=== PATIENT | female | born 1985 | race Caucasian/White ===

== ENCOUNTER 2018-07-28 12:59 | Emergency (ER) | payer OTHER ==
[~2018-07-28] VITALS: Wt 50.0 kg
[2018-07-28 13:02] VITALS: BP 127/74; PULSE 84; RESP 18
[2018-07-28] MEDS ORDERED: FAMOTIDINE 20 MG TAB PO STA (14:00)
[2018-07-28] MEDS ORDERED: LIDOCAINE/MYLANTA 40 ML BTL PO STA (14:00)
--- NOTE | 2018-07-28 14:17 | ERD ---
ER Documentation Chief Complaint Chief Complaint UPPER ABD PAIN FOR THE PAST FEW WKS. NO NAUSEA OR VOMITING. HPI This is a 32-year-old female with a nonsignificant past medical history presents ED with epigastric abdominal pain has been off and on for the past 4 days. Patient states that the pain radiates to the right mid back. patient admits to having one episode of diarrhea. Denies fever, chills, nausea, vomiting, hematemesis, constipation, dysuria, hematuria, melena, hematochezia, cough, congestion, shortness breath, trouble breathing, and all other symptoms. ROS All systems reviewed and are negative except as per history of present illness. Allergies Allergies: Coded Allergies: No Known Allergy (Unverified , 07/28/18) FmHx Family History: No diabetes Physical Exam Vitals Vital Signs Date Temp Pulse Resp B/P (MAP) Pulse Ox O2 O2 Flow FiO2 Time Delivery Rate 07/28/18 98.8 84 18 127/74 98 13:02 (91) Physical Exam Physical Exam Vitals signs: Reviewed by me. General: Well developed, well nourished, in no acute distress. Patient is awake and alert. Head: Normocephalic, atraumatic. Eyes: Normal conjunctiva, Pupils PERRLA, EOM intact grossly ENT: Pharynx is clear, Moist mucous membranes, external ears, nose and mouth normal Neck: Supple, no masses, lymphadenopathy or JVD Respiratory: Clear to auscultation bilaterally with no wheezing, rhonchi, rales, no distress Cardiovascular: RRR, no murmurs, rubs, or gallops Abdominal: Soft, nondistended, no peritoneal signs, no rigidity, no surgical abdomen, bowel sounds present all 4 quadrants, nontender palpation all 4 quadrants, McBurney's point nontender, no rebound tenderness, no epigastric tenderness, Alston sign negative, MSK: No edema, no unilateral swelling, 5/5 strength Back: No midline tenderness. No flank tenderness Neurologic: Alert and oriented, moving all extremities, normal speech, no focal weakness, no cerebellar signs. Normal mentation Skin: warm and dry, No rash Psych: Normal mood Result Diagram: 07/28/18 1436 07/28/18 1436 Results 24 hrs Laboratory Tests Test 07/28/18 14:25 07/28/18 14:36 POC Beta HCG, Qualitative NEGATIVE White Blood Count 9.1 10^3/ul Red Blood Count 4.21 10^6/ul Hemoglobin 13.0 g/dl Hematocrit 39.4 % Mean Corpuscular Volume 93.6 fl Mean Corpuscular Hemoglobin 30.9 pg Mean Corpuscular Hemoglobin Concent 33.0 g/dl Red Cell Distribution Width 12.4 % Platelet Count 227 10^3/UL Mean Platelet Volume 11.3 fl Immature Granulocytes % 0.300 % Neutrophils % 84.5 % Lymphocytes % 10.5 % Monocytes % 4.2 % Eosinophils % 0.3 % Basophils % 0.2 % Nucleated Red Blood Cells % 0.0 /100WBC Immature Granulocytes # 0.030 10^3/ul Neutrophils # 7.7 10^3/ul Lymphocytes # 1.0 10^3/ul Monocytes # 0.4 10^3/ul Eosinophils # 0.0 10^3/ul Basophils # 0.0 10^3/ul Nucleated Red Blood Cells # 0.0 10^3/ul Urine Color YELLOW Urine Clarity CLEAR Urine pH 7.0 Urine Specific [place] 1.008 Urine Ketones NEGATIVE mg/dL Urine Nitrite NEGATIVE mg/dL Urine Bilirubin NEGATIVE mg/dL Urine Urobilinogen NEGATIVE mg/dL Urine Leukocyte Esterase NEGATIVE Le/ul Urine Hemoglobin NEGATIVE mg/dL Urine Glucose NEGATIVE mg/dL Urine Total Protein NEGATIVE mg/dl Sodium Level 139 mmol/L Potassium Level 4.3 mmol/L Chloride Level 104 mmol/L Carbon Dioxide Level 28 mmol/L Anion Gap 7 Blood Urea Nitrogen 11 mg/dl Creatinine 0.51 mg/dl Est Glomerular Filtrat Rate mL/min > 60 mL/min Glucose Level 136 mg/dl Calcium Level 9.6 mg/dl Total Bilirubin 0.4 mg/dl Direct Bilirubin 0.00 mg/dl Indirect Bilirubin 0.4 mg/dl Aspartate Amino Transf (AST/SGOT) 106 IU/L Alanine Aminotransferase (ALT/SGPT) 84 IU/L Alkaline Phosphatase 128 IU/L Total Protein 7.4 g/dl Albumin 4.3 g/dl Globulin 3.10 g/dl Albumin/Globulin Ratio 1.38 Lipase 104 U/L Current Medications Medications Dose Sig/Brandon Start Time Status Last (Trade) Ordered Route PRN Stop Time Admin Dose Reason Admin Famotidine 20 mg ONCE STAT 07/28/18 DC 07/28/18 (Pepcid) PO 14:00 14:28 07/28/18 14:02 40 ml ONCE STAT 07/28/18 DC 07/28/18 Miscellaneous PO 14:00 14:28 Medication 07/28/18 14:02 (Gi Cocktail (2)) Procedures/MDM EKG, MONITORS, & DIAGNOSTIC IMAGING: [place] [address] Radiology Main Line: [phone] DIAGNOSTIC IMAGING REPORT Patient: MATTY BARON : 1985 Age: 32 Sex: F MR #: [id number] DOS: 07/28/18 1400 Ordering MD: DORA HARRIS PA-C Location: [facility] Room/Bed: PROCEDURE: XR Chest. CLINICAL INDICATION: Abdominal pain TECHNIQUE: AP chest x-ray. COMPARISON: None. FINDINGS: The cardiomediastinal silhouette is unremarkable. The lungs are clear. No focal opacification is seen. There is no pleural effusion or pneumothorax. The osseous structures are unremarkable. IMPRESSION: Unremarkable chest x-ray. RPTAT: [facility] Physician Kevin Date Time Electronically viewed and signed by Physician Kevin on 07/28/2018 16:07 RL/ CC: DORA HARRIS PA-C [id number] [place] [address] Radiology Main Line: [phone] DIAGNOSTIC IMAGING REPORT Patient: MATTY BARON : 1985 Age: 32 Sex: F MR #: [id number] DOS: 07/28/18 1400 Ordering MD: DORA HARRIS PA-C Location: [facility] Room/Bed: PROCEDURE: US Abdomen (right upper quadrant). CLINICAL INDICATION: Right upper quadrant pain TECHNIQUE: Multiple real-time longitudinal and transverse images of the right upper quadrant of the abdomen were acquired utilizing a curved array transducer. Images were reviewed on a high-resolution PACS workstation. COMPARISON: None FINDINGS: The liver is normal in size and echogenicity without focal mass or intrahepatic biliary dilatation. Normal hepatopedal flow is seen within the main portal vein. The gallbladder demonstrates multiple gallstones with gallbladder wall measuring up to 2.5 mm. There is extrahepatic ductal dilatation The common bile duct measures 8 mm in maximal dimension. The visualized portions of the pancreas are unremarkable with obscuration of the tail of the pancreas. No free fluid is identified. The right kidney measures 10.3 cm in length. There is normal echogenicity . There is no perinephric fluid collection. No hydronephrosis, mass, or calculus is seen. IMPRESSION: Ultrasound demonstrates cholelithiasis with dilation of the common bile duct. No choledocholithiasis is seen on this exam. Would recommend MRCP. RPTAT: [facility] Physician Kevin Date Time Electronically viewed and signed by Physician Kevin on 07/28/2018 16:09 RL/ CC: DORA HARRIS PA-C [id number] LAB INTERPRETATION: CBC shows no evidence of hemorrhage or infection, mildly elevated neutrophil percentage 84.5 Chemistry shows no evidence of significant electrolyte abnormalities or renal insufficiency Liver function test remarkable for an elevated AST 106, ALT 84, alkaline phosphatase 128 Coagulation study showed no concerning coagulopathy Lipase shows no evidence of acute pancreatitis Urine negative Urinalysis unremarkable ER COURSE: The patient was given GI cocktail and famotidine The medication was well tolerated and the patient reports improvement in symptoms. The patient was stable throughout ED course. I kept the patient and/or family informed of laboratory and diagnostic imaging results throughout the emergency room course. The patient was promptly evaluated and a treatment plan was devised based on H&P and other data. This plan was discussed with the patient who agreed and had no further questions or concerns prior to discharge. MEDICAL DECISION MAKING: []This is a 32-year-old female with a nonsignificant past medical history presents ED with epigastric abdominal pain has been off and on for the past 4 days. Ultrasound shows cholelithiasis with dilation of the common bile duct but no choledocholithiasis is seen on the exam. There is no gallbladder wall thickening. Physical examination is also unremarkable with a negative Alston sign. Patient does not have an elevated WBC and has no fevers. This is likely biliary colic. I discussed these findings with my overseeing physician Dr. menjivar and he agrees with plan of close outpatient follow-up. Patient was advised to follow-up with GI specialist. At this time there is no gastrointestinal emergency. No evidence of cholecystitis, cholangitis, choledocholithiasis, sepsis, appendicitis, small bowel obstruction, perforated viscus, volvulus, among others. Vitals are stable patient can be managed close outpatient follow-up. Patient was advised to follow-up with her primary care physician in the next 24-48 hours. Return to ED with any worsening symptoms DISPOSITION PLAN: We discussed follow up with the patient's primary care doctor within 24 to 48 h ours. Patient counseled regarding my diagnostic impression and care plan. Prior to discharge all questions answered. Pt agrees with treatment plan and understands strict return precautions. Precautionary instructions provided including instructions to return to the ER if not improving or for any worsening or changing symptoms or concerns. SPECIALIST FOLLOW UP RECOMMENDED: GI Patient has been advised to follow up with primary care in 1-2 days. Disclaimer: Inadvertent spelling and grammatical errors are likely due to EHR/dictation software use and do not reflect on the overall quality of patient care. Also, please note that the electronic time recorded on this note does not necessarily reflect the actual time of the patient encounter. Departure Diagnosis: Primary Impression: Biliary colic Additional Impression: Cholelithiasis Cholelithiasis location: other site Biliary obstruction: without biliary obstruction Qualified Codes: K80.80 - Other cholelithiasis without obstruction Condition: Stable Patient Instructions: Biliary Colic With Gallstone (Confirmed), Gallstones Referrals: NOÉ KUHN MD,MICHAEL HUNTLEY,DAGO DE LOS SANTOS,SEPIDEH CRADONA,BIJAL GARCÍA,BYRON GALLARDO,ANICETO [facility] () Additional Instructions: Paciente aconseja volver a Departamento de urgencias inmediatamente para sntomas nuevos o que empeoran . Paciente aconseja posteriores con el PCP en 1-2 bustos . Paciente verbaliza la comprehensin y est de acuerdo con el tratamiento y el curso de accin. Si el paciente no tiene ninguna de atencin primaria pueden seguir con [facility] [address] [place] [address] o [facility] + [address] [address] DORA HARRIS PA-C Jul 28, 2018 14:17
[2018-07-28] MEDS ORDERED: HYDR-4011 PO (16:38)
== END 2018-07-28 16:43 | disposition home or self-care (01) ==
LOC: FTE 12:59 → EDBD 12:59 → FTE 16:43
DX: K80.50 Calculus of bile duct without cholangitis or cholecystitis without obstruction (principal); K80.80 Other cholelithiasis without obstruction
CPT/HCPCS: 36415; 71045; 76705; 80053; 81003; 81025; 83690; 85025; Z7502; Z7610